=== PATIENT | female | born 2000 | race Hispanic/Latino ===

== ENCOUNTER 2025-03-08 13:30 | Emergency (ER) | payer BC, SELFPAY ==
[2025-03-08 16:03] LABS: Bacteria/HPF None Seen HPF (None Seen); CAUTI Indications for Culture Fever or rigors; Glucose, Urine (Dipstick) 30 mg/dL (Negative); Leukocyte Negative Leu/uL (Negative); Protein, Urine (Dipstick) 20 mg/dL (Neg-Trace); RBC/HPF Greater than 50 HPF (0-3); Specific Gravity, Urine 1.039 (1.002-1.036); WBC/HPF 0-3 HPF (0-3)
[2025-03-08 16:04] LABS: Urine Culture Reflex No No
[2025-03-08] MEDS ORDERED: Ondansetron PF 4 MG/2 ML Vial ONE (16:34)
[2025-03-08 17:22] LABS: #Basophils 0.06 10x3/uL (0.0-0.2); #Eosinophils 0.10 10x3/uL (0.0-0.7); #Monocytes 0.44 10x3/uL (0.11-0.59); #Neutrophils 9.07 10x3/uL (1.40-6.50); %Basophils 0.5 % (0.0-1.0); %Eosinophils 0.9 % (0.0-10.0); %Lymphocytes 14.4 % (21.0-51.0); %Monocytes 3.9 % (0.0-10.0); %Neutrophils 80.0 % (42.0-75.0); Hematocrit 42.0 % (36.0-47.0); Hemoglobin 13.9 g/dL (12.0-16.0); Mean Corpuscular Hemoglobin 28.3 pg (27.0-31.0); Mean Corpuscular Volume 85.5 fL (78.0-98.0); Platelet Count 312 10x3/uL (130-400); Red Blood Cell (RBC) Count 4.91 mill/uL (4.20-5.40); White Blood Cell (WBC) Count 11.33 10x3/uL (4.8-10.8)
[2025-03-08 17:36] LABS: BHCG - Serum Negative (NEGATIVE); Pregs Control Background? CLEAR/WHITE (CLR/WHITE); Pregs Control Bar Appear? YES (CONTROL BAR)
[2025-03-08 17:48] LABS: Anion Gap 11 mmol/L (10-20); BUN (Urea Nitrogen) 11 mg/dL (7.0-18.7); Calc. Creatinine Clearance 0 mL/min (70-130); Carbon Dioxide 27 mmol/L (22-29); Chloride 106 mmol/L (98-107); Potassium 3.8 mmol/L (3.5-5.1); Sodium 140 mmol/L (136-145)
[2025-03-08 17:49] LABS: ALT (SGPT) 10 U/L (Less than 34); AST (SGOT) 16 U/L (11-34); Albumin 4.4 g/dL (3.1-4.5); Alkaline Phosphatase 59 U/L (40-110); Bilirubin, Total 0.5 mg/dL (0.3-1.2); Calcium 9.0 mg/dL (7.8-10.44); Globulin 3.0 g/dL (2.4-3.5); Glucose 70 mg/dL (70-105); Lipase 31 U/L (8-78)
== END 2025-03-08 17:50 | disposition home or self-care (01) ==
LOC: ERS 13:30
DX: B34.9 Viral infection, unspecified (principal); N93.9 Abnormal uterine and vaginal bleeding, unspecified; R11.0 Nausea
CPT/HCPCS: 36416; 80053; 81001; 83690; 84703; 85025; 87428; 96374; J2405